=== PATIENT | male | born 1940 | race Caucasian/White ===

== ENCOUNTER 2017-01-06 09:06 | Outpatient (CLI) | payer MEDICARE ==
--- NOTE | 2017-01-06 10:22 | RAD ---
LUMBAR SPINE THREE VIEWS: History: Acute low back pain with right sided sciatica. FINDINGS: There are degenerative changes of the lumbar spine. No fracture, subluxation, or bony destruction is seen. Vascular calcifications are present. IMPRESSION: Lumbar spondylosis. POS: [facility]
== END 2017-01-06 09:07 | disposition home or self-care (01) ==
LOC: MADRAD 09:06
PROVIDERS: ATTEND Physician Assistant
DX: M54.41 Lumbago with sciatica, right side (principal); M47.816 Spondylosis without myelopathy or radiculopathy, lumbar region
CPT/HCPCS: 72100